=== PATIENT | female | born 1955 | race Caucasian/White ===

== ENCOUNTER 2022-02-15 18:47 | Emergency (ER) | payer BC ==
[2022-02-15 21:28] VITALS: BP 151/78; PULSE 88
[2022-02-15] MEDS ORDERED: Acetaminophen 325 MG Tab PO ONE (22:08)
== END 2022-02-15 22:44 | disposition home or self-care (01) ==
LOC: JD.ED 18:47
DX: N30.01 Acute cystitis with hematuria (principal); E11.9 Type 2 diabetes mellitus without complications
CPT/HCPCS: 81001; 87086; 99283; A9270